=== PATIENT | male | born 1960 | race Two or more races ===

== ENCOUNTER 2025-02-28 11:53 | Emergency (ER) | payer OTHER ==
[~2025-02-28] VITALS: Ht 172.7 cm; Wt 73.5 kg
[2025-02-28] MEDS ORDERED: ROSUVASTATIN CAL5 MG (12:23)
[2025-02-28] MEDS ORDERED: OMEPRAZOLE40 MG (12:23)
[2025-02-28] MEDS ORDERED: DEXAMETHASONE SODIUM PHOSPHATE 4 MG/ML VIAL IM STA (13:04)
[2025-02-28] MEDS ORDERED: KETOROLAC TROMETHAMINE 30 MG VIAL IM STA (13:04)
[2025-02-28] MEDS ORDERED: ORPHENADRINE CITRATE 100 MG TABLET PO ONE (13:15)
[2025-02-28] MEDS ORDERED: KETOROLAC TROMETHAMINE 30 MG VIAL ONE (13:17)
[2025-02-28] MEDS ORDERED: DEXAMETHASONE SODIUM PHOSPHATE 4 MG/ML VIAL ONE (13:17)
[2025-02-28] MEDS ORDERED: NAPROXEN500 MG PO (13:40)
[2025-02-28] MEDS ORDERED: NORFLEX100MG PO (13:40)
== END 2025-02-28 14:06 | disposition home or self-care (01) ==
LOC: ER 11:54
DX: M62.838 Other muscle spasm (principal); M54.2 Cervicalgia
CPT/HCPCS: 72040; 96372; 99283; J1100; J1885